=== PATIENT | male | born 1995 | race Hispanic/Latino ===

== ENCOUNTER 2017-08-13 11:15 | Emergency (ER) | payer BC, OTHER ==
[2017-08-13 11:42] VITALS: BMI 21.3
[2017-08-13 11:50] VITALS: BP 140/84; PULSE 90; RESP 16; TEMP 99.1; O2SAT 99
--- NOTE | 2017-08-13 13:01 | ED PDOC ---
HPI: Male Pain Time Seen by Provider: 08/13/17 12:21 Chief Complaint (Nursing): Male Genitourinary Chief Complaint (Provider): testicular pain History Per: Patient Additional Complaint(s): 22 yo male, no PMH, presents to ED with complaints of intermittent pain to right testicle. Pt was seen at an urgent care center and referred to ED for further evaluation. No penile discharge. no lesions. pt reports no recent history of unprotected sex. Pt has no concerns for STIs No abdominal pain. no burning on urination or hematuria Past Medical History Reviewed: Nursing Documentation, Vital Signs Vital Signs: Last Vital Signs Temp 99.1 F 08/13/17 11:42 Pulse 90 08/13/17 11:42 Resp 16 08/13/17 11:42 BP 140/84 08/13/17 11:42 Pulse Ox 99 08/13/17 11:42 - Medical History PMH: No Chronic Diseases - Surgical History Surgical History: No Surg Hx - Family History Family History: States: No Known Family Hx - Living Arrangements Living Arrangements: With Family - Social History Current smoker - smoking cessation education provided: No Alcohol: Social Drugs: Denies - Home Medications Home Medications: Ambulatory Orders Medication Instructions Recorded RX: Doxycycline Hyclate 100 mg PO BID #14 capsule 08/13/17 - Allergies Allergies/Adverse Reactions: Allergies Allergy/AdvReac Type Severity Reaction Status Date / Time Penicillins Allergy RASH Verified 08/13/17 12:16 Review of Systems ROS Statement: Except As Marked, All Systems Reviewed And Found Negative Genitourinary Male: Positive for: Scrotal Pain Physical Exam - Reviewed Nursing Documentation Reviewed: Yes Vital Signs Reviewed: Yes - Physical Exam Appears: Positive for: Well, Non-toxic, No Acute Distress Head Exam: Positive for: ATRAUMATIC, NORMAL INSPECTION, NORMOCEPHALIC Skin: Positive for: Normal Color, Warm, DRY Eye Exam: Positive for: EOMI, Normal appearance, PERRL ENT: Positive for: Normal ENT Inspection Neck: Positive for: Normal, Painless ROM Cardiovascular/Chest: Positive for: Regular Rate, Rhythm Respiratory: Positive for: CNT, Normal Breath Sounds Gastrointestinal/Abdominal: Positive for: Normal Exam, Bowel Sounds, Soft Male Genital Exam: Positive for: normal genitalia. Negative for: no hernia, epididymal tenderness, hernia mass, inguinal tenderness, lesions, scrotum tenderness (R), scrotum tenderness (L), testicular tenderness (R), testicular tenderness (L), urethral discharge Back: Positive for: Normal Inspection Extremity: Positive for: Normal ROM Neurologic/Psych: Positive for: Alert, Oriented - ECG O2 Sat by Pulse Oximetry: 99 Medical Decision Making Medical Decision Making: UA resulted WNL Pt deferred GC/C genital cultures IMPRESSION: Slightly increased right testicular vascularity may represent acute orchitis versus torsion/detorsion phenomenon. Left-sided varicocele. Pt given Rocephin IM while in ED and sent home on Doxy. Given Urology follow up Advised to return to ED if at anytime condition worsens Disposition - Clinical Impression Clinical Impression: Orchitis - Patient ED Disposition Is Patient to be Admitted: No - Disposition Referrals: Rodolfo Barrera Jr., MD [Staff Provider] - Disposition: Routine/Home Disposition Time: 16:56 Condition: STABLE Prescriptions: RX: Doxycycline Hyclate 100 mg PO BID #14 capsule Instructions: Epididymo-orchitis (ED) Forms: [employer] ([place]ian)
[2017-08-13 13:31] LABS: URINE BILIRUBIN NEGATIVE (NEGATIVE); URINE BLOOD NEGATIVE (NEGATIVE); URINE CLARITY SLIGHTY-CLOUDY (Clear); URINE COLOR YELLOW (YELLOW); URINE GLUCOSE (UA) NEG (Normal); URINE LEUKOCYTE ESTERASE NEG Leu/uL (Negative); URINE NITRATE NEGATIVE (NEGATIVE); URINE PROTEIN NEGATIVE (NEGATIVE); URINE UROBILINOGEN 0.2-1.0 mg/dL (0.2-1.0)
--- NOTE | 2017-08-13 15:07 | US ---
HISTORY: pain to right TECHNIQUE: Realtime sonography through the scrotum with color and doppler flow. COMPARISON: None Available. FINDINGS: RIGHT TESTICLE: Measures 5.2 x 2.8 x 2.0 cm. Normal echotexture. Slightly increased vascularity. RIGHT EPIDIDYMIS: Epididymal head measures 0.9 x 0.7 x 0.6 cm. Grossly unremarkable appearance with normal flow. LEFT TESTICLE: Measures 4.9 x 2.8 x 2.2 cm. Normal echotexture and flow. LEFT EPIDIDYMIS: Epididymal head measures 1.0 x 0.9 x 0.7 cm. Grossly unremarkable appearance with normal flow. HYDROCELE: None. VARICOCELE: Left sided varicocele. OTHER FINDINGS: None. IMPRESSION: Slightly increased right testicular vascularity may represent acute orchitis versus torsion/detorsion phenomenon. Left-sided varicocele.
[2017-08-13] MEDS ORDERED: cefTRIAXone (Rocephin) 250 mg Inj IM ONE (16:41)
[2017-08-13] MEDS ORDERED: Lidocaine 2% Inj (20ml) ONE (16:53)
[2017-08-13] MEDS ORDERED: cefTRIAXone (Rocephin) 250 mg Inj ONE (16:53)
== END 2017-08-13 17:18 | disposition home or self-care (01) ==
LOC: H.ER 11:15
DX: N45.2 Orchitis (principal); Z88.0 Allergy status to penicillin
CPT/HCPCS: 81003; 86631; 86632; 87086; 93975; 96372; 99283; J0696